=== PATIENT | female | born 1950 | race African-American/Black ===

== ENCOUNTER 2018-09-19 18:04 | Emergency (ER) | payer OTHER ==
[~2018-09-19] VITALS: Ht 165.1 cm; Wt 68.5 kg
[~2018-09-19 18:04] MED LIST: ACYCLOVIR 400400 MG PO; CARTIA XT300 M1 PO; CLARITIN10 MG PO; CRESTOR20 MG PO; DILTIAZEM ER300 MG PO; FLONASE 0.05%50 MCG NASAL; HYDROCHLOROTHIA25 M2 PO; LEVAQUIN 500 M500 MG PO; LISINOPRIL20 MG PO; NORCO 5-325 TA1 EACH PO; PRILOSEC 20 MG20 MG PO; SIMVASTATIN10 MG PO; SIMVASTATIN40 MG PO; ULTRAM 50MG TAB50 MG PO
[2018-09-19] MEDS ORDERED: ASPIR 8181 M1 PO (18:14)
[2018-09-19] MEDS ORDERED: ALEVE220 MG PO (19:34)
[2018-09-19] MEDS ORDERED: MEDROLDOSEPACK PO (19:34)
[2018-09-19 19:57] VITALS: BP 143/86
== END 2018-09-19 19:58 | disposition home or self-care (01) ==
LOC: ER 18:04
DX: M19.011 Primary osteoarthritis, right shoulder (principal); M25.551 Pain in right hip; K21.9 Gastro-esophageal reflux disease without esophagitis; I10 Essential (primary) hypertension; Z90.49 Acquired absence of other specified parts of digestive tract; Z88.2 Allergy status to sulfonamides

== ENCOUNTER → 2019-03-11 | Outpatient (CLI) | payer OTHER ==
[~2019-03-11] VITALS: Ht 167.6 cm; Wt 65.8 kg
[~2019-03-11] MED LIST changes: +ALEVE220 MG PO; +ASPIR 8181 M1 PO; +ATORVASTATIN CA40 MG PO; +MEDROLDOSEPACK PO; +VITAMIN D-32000 UNIT PO
--- NOTE | 2019-03-13 09:07 | PATH ---
[facility] [address] [place] [address] PATHOLOGY RPT PROCEDURE Name: CARLI HINOJOSA Room #: REG [facility]..#: [id number] ������������������ Admission: 03/11/19 ������������������ Date of : 52 Discharge: Report #: [id number] Path Case #: [id number] [facility] Accession Number: [id number] . 01 Material submitted: . rectum - RECTAL POLYP X2 . 01 Clinical history: . Pre-OP DX: Screening Post-OP DX: Rectal polyps . 02 Diagnosis: Polyp x2, rectal polyp, endoscopic biopsy: - Tubular adenoma present in multiple fragments; negative for dysplasia. - One fragment showing hyperplastic polyp without dysplasia. (IUV:lapping machine tender; 03/12/2019) MBR/03/12/2019 . 02 Electronically signed: . Alicia Martínez MD, Pathologist NPI- [id number] . 01 Gross description: . Received in formalin labeled "[place], Carli, rectal polyp x2," are multiple segments of hines soft tissue measuring 1.3 x 0.8 x 0.2 cm in aggregate dimensions. The specimen is filtered and entirely submitted in cassette A1. (TSD; 03/11/2019) TOB/TOB . 02 Pathologist provided ICD-10: D12.8, K62.1 . 02 CPT . 284973 Specimen Comment: A courtesy copy of this report has been sent to Specimen Comment: [phone], . Specimen Comment: Report sent to / DR GARNER Performed at: [address], [place], [place] [id number] MD Gilmer Pate MD Phone: [phone] Performed at: [address] [id number] MD Alicia Martínez MD Phone: [phone]
== END | disposition home or self-care (01) ==
LOC: GI 08:32
DX: Z12.11 Encounter for screening for malignant neoplasm of colon (principal); D12.8 Benign neoplasm of rectum; K64.8 Other hemorrhoids; I10 Essential (primary) hypertension; E78.5 Hyperlipidemia, unspecified; E78.00 Pure hypercholesterolemia, unspecified; Z87.442 Personal history of urinary calculi; Z88.2 Allergy status to sulfonamides; Z90.49 Acquired absence of other specified parts of digestive tract; Z98.890 Other specified postprocedural states; Z79.899 Other long term (current) drug therapy; Z90.710 Acquired absence of both cervix and uterus; Z79.82 Long term (current) use of aspirin; Z80.0 Family history of malignant neoplasm of digestive organs
CPT/HCPCS: 62110; 62900

== ENCOUNTER 2019-10-14 15:21 | Emergency (ER) | payer OTHER ==
[~2019-10-14] VITALS: Ht 167.6 cm; Wt 66.2 kg
[2019-10-14 15:52] LABS: URINE BILIRUBIN NEGATIVE (Negative); URINE BLOOD TRACE (Negative); URINE CLARITY CLEAR; URINE COLOR YELLOW; URINE GLUCOSE-RANDOM* NEGATIVE (Negative); URINE KETONES NEGATIVE (Negative); URINE NITRITE-REFLEX NEGATIVE (Negative); URINE PROTEIN (DIPSTICK) NEGATIVE (Negative); URINE SPECIFIC GRAVITY >= 1.030 (1.005-1.035)
[2019-10-14 15:53] LABS: URINE LEUKOCYTES-REFLEX 1+ (Negative)
[2019-10-14 15:59] LABS: SQUAMOUS 4-10 Moderate /LPF (0-3)
[2019-10-14 16:00] LABS: CALCIUM OXALATE 0-3 Few /LPF (None Seen); CASTS None Seen /LPF (None Seen); URINE RBC 0-2 Rare /HPF (0-2); URINE WBC-REFLEX 0-5 Rare /HPF (0-5)
[2019-10-14 16:02] LABS: BACTERIA-REFLEX 1-9 Few /HPF (None Seen)
[2019-10-14 16:32] LABS: HEMATOCRIT 42.5 % (37.0-47.0); MCH 31.7 pg (26.0-34.0); MCHC 32.8 g/dL (28.0-37.0); MCV 96.5 fL (80.0-100.0); PLATELET COUNT 224 thou/uL (150-400); RDW 13.7 % (10.5-14.5)
[2019-10-14 16:39] LABS: ANION GAP 4 mmol/L (7-16); BUN 15 mg/dL (7-18); CALCIUM 10.8 mg/dL (8.5-10.1); CHLORIDE 106 mmol/L (98-107); CO2 31 mmol/L (21-32); CREATININE 0.9 mg/dL (0.6-1.0); GLUCOSE 88 mg/dL (74-106); POTASSIUM 3.6 mmol/L (3.5-5.1); SODIUM 141 mmol/L (136-145)
[2019-10-14 16:49] LABS: ALBUMIN 3.8 g/dL (3.4-5.0); DIRECT BILIRUBIN < 0.1 mg/dL (<0.1-0.3); LIPASE 114 U/L (73-393); SGOT 21 U/L (15-37); SGPT 27 U/L (30-65); TOTAL BILIRUBIN 0.2 mg/dL (<0.1-1.0); TOTAL PROTEIN 7.6 g/dL (6.4-8.2); TROPONIN-I <0.06 ng/mL (<0.06)
[2019-10-14 17:01] LABS: ABSOLUTE NEUTROPHILS 2.6 thou/uL (1.4-8.2); ANISOCYTOSIS 1+
[2019-10-14] MEDS ORDERED: MACROBID 100 M100 M2 PO (17:59)
[2019-10-14 18:06] VITALS: BP 143/81
--- NOTE | 2019-10-15 08:28 | EKG ---
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: ERAN : 1950 Requested By: Alvina Nur Order Number: [id number] MD: Justice Wray Measurements Intervals [place] Rate: 82 P: 73 ME: 134 QRS: 11 QRSD: 97 T: 37 QT: 354 QTc: 414 Interpretive Statements Sinus rhythm Abnormal R-wave progression, early transition Compared to ECG 10/01/2005 18:03:48 No significant changes Electronically Signed On 10-15-2019 8:27:57 POLICY WRITER by Justice Wray [email or web address] <ELECTRONICALLY SIGNED> By: Justice Wray MD, [facility] 10/15/19 0827 [id number] 42 Justice Wray MD, FACC /EPI
== END 2019-10-14 18:06 | disposition home or self-care (01) ==
LOC: ER 15:21
PROVIDERS: Emergency Medicine; Nurse Practitioner
DX: N30.01 Acute cystitis with hematuria (principal); I10 Essential (primary) hypertension; E78.5 Hyperlipidemia, unspecified; Z90.49 Acquired absence of other specified parts of digestive tract; Z90.710 Acquired absence of both cervix and uterus; Z87.442 Personal history of urinary calculi; Z88.2 Allergy status to sulfonamides

== ENCOUNTER 2021-08-24 10:09 | Emergency (ER) | payer OTHER ==
[~2021-08-24] VITALS: Ht 167.6 cm; Wt 68.0 kg
[~2021-08-24 10:09] MED LIST changes: +MACROBID 100 M100 M2 PO
[2021-08-24] MEDS ORDERED: CETIRIZINE HCL10 MG PO (10:22)
[2021-08-24 10:47] LABS: URINE BILIRUBIN NEGATIVE (Negative); URINE BLOOD TRACE (Negative); URINE CLARITY CLEAR; URINE COLOR YELLOW; URINE GLUCOSE-RANDOM* NEGATIVE (Negative); URINE KETONES NEGATIVE (Negative); URINE LEUKOCYTES-REFLEX NEGATIVE (Negative); URINE NITRITE-REFLEX NEGATIVE (Negative); URINE PROTEIN (DIPSTICK) NEGATIVE (Negative); URINE UROBILINOGEN 0.2 E.U./dl (0.2-1.0)
[2021-08-24 12:09] LABS: ABSOLUTE NEUTROPHILS 5.9 thou/uL (1.4-8.2); BASOPHILS 0.5 % (0.0-2.0); EOSINOPHILS 1.6 % (0.0-3.0); HEMATOCRIT 39.2 % (37.0-47.0); HEMOGLOBIN 13.3 gm/dL (12.0-15.0); LYMPHOCYTES 15.5 % (24.0-44.0); MCH 32.3 pg (26.0-34.0); MCHC 33.9 g/dL (28.0-37.0); MCV 95.1 fL (80.0-100.0); MONOCYTES 16.1 % (1.0-8.0); PLATELET COUNT 182 thou/uL (150-400); POLYS 66.3 % (36.0-66.0); RBC 4.12 mil/uL (4.20-5.00); RDW 12.8 % (10.5-14.5); WBC 8.9 thou/uL (4.0-11.0)
[2021-08-24 12:28] LABS: CALCIUM 9.8 mg/dL (8.5-10.1); CREATININE 0.8 mg/dL (0.6-1.0); POTASSIUM 3.6 mmol/L (3.5-5.1)
[2021-08-24 12:35] LABS: ALBUMIN 3.5 g/dL (3.4-5.0); TOTAL BILIRUBIN 0.7 mg/dL (0.2-1.0); TOTAL PROTEIN 7.4 g/dL (6.4-8.2)
[2021-08-24] MEDS ORDERED: NORCO5 PO (14:21)
[2021-08-24 14:25] VITALS: BP 137/75
== END 2021-08-24 14:29 ==
LOC: ER 10:09
PROVIDERS: Emergency Medicine; Nurse Practitioner
DX: R10.32 Left lower quadrant pain (principal); I10 Essential (primary) hypertension; E78.5 Hyperlipidemia, unspecified; Z90.710 Acquired absence of both cervix and uterus; Z90.89 Acquired absence of other organs; Z86.16 Personal history of COVID-19; Z79.891 Long term (current) use of opiate analgesic; Z79.899 Other long term (current) drug therapy; Z88.2 Allergy status to sulfonamides